=== PATIENT | male | born 1965 | race Caucasian/White ===

== ENCOUNTER 2019-10-22 14:50 | Inpatient (IN) | payer OTHER ==
[~2019-10-22] VITALS: Ht 175.3 cm; Wt 81.6 kg
[2019-10-22 15:32] LABS: BASOPHILS ABSOLUTE AUTO 0.01 K/mm3 (0.00-0.23); BASOPHILS PERCENT AUTO 0 % (0-2); EOSINOPHILS ABSOLUTE AUTO 0.02 K/mm3 (0.00-0.68); EOSINOPHILS PERCENT AUTO 0 % (0-6); Hematocrit 42.8 % (37.0-53.0); Hemoglobin 14.1 g/dL (13.5-17.5); IMMATURE GRAN ABSOLUTE AUTO 0.02 K/mm3 (0.00-0.10); IMMATURE GRAN PERCENT AUTO 0 % (0-1); LYMPHOCYTES ABSOLUTE AUTO 0.83 K/mm3 (0.84-5.20); LYMPHOCYTES PERCENT AUTO 9 % (21-46); MONOCYTES ABSOLUTE AUTO 0.69 K/mm3 (0.16-1.47); MONOCYTES PERCENT AUTO 7 % (4-13); Mean Corpuscular HGB 29.1 pg (26.0-34.0); Mean Corpuscular HGB Conc 32.9 g/dL (31.5-36.5); Mean Corpuscular Volume 88 fL (80-100); Mean Platelet Volume 10.2 fL (9.1-12.4); NEUTROPHILS ABSOLUTE AUTO 7.78 K/mm3 (1.96-9.15); NEUTROPHILS PERCENT AUTO 83 % (41-73); Platelet Count 241 K/mm3 (150-400); RDW Coefficient Variation 13.6 % (11.7-14.2); RDW Standard Deviation 44.1 fL (35.1-46.3); Red Blood Cell Count 4.84 M/mm3 (4.30-5.90); White Blood Cell Count 9.35 K/mm3 (4.00-11.30)
[2019-10-22 15:54] LABS: Acetaminophen, Random 4.2 ug/mL (10.0-30.0); Alanine Aminotransfer (ALT/SGP 303 U/L (12-78); Alk Phos 107 U/L (50-136); Anion Gap 6 mmol/L (6-16); Aspartate Aminotrans (AST/SGOT 179 U/L (12-37); Bilirubin, Total 0.8 mg/dL (0.1-1.0); Blood Urea Nitrogen 13 mg/dL (8-24); Bun/Creatinine Ratio 12.7 (12.0-20.0); CO2, Blood 28 mmol/L (21-32); Calcium, Blood 9.4 mg/dL (8.5-10.1); Chloride, Blood 105 mmol/L (98-108); Creatinine, Blood 1.02 mg/dL (0.60-1.20); Glomerular Filtration Rate >60 (60-); Glucose, Blood 109 mg/dL (70-99); Potassium, Blood 4.5 mmol/L (3.5-5.5); Sodium, Blood 139 mmol/L (136-145)
[2019-10-22 15:58] LABS: International Normalized Ratio 0.94; Prothrombin Time Results 10.1 Sec (9.7-11.5)
[2019-10-22] MEDS ORDERED: ACET500 PO (18:46)
[2019-10-23 02:18] LABS: U Amphetamine Screen DETECTED; U Barbituate Screen Not Detected; U Benzodiazapine Screen Not Detected; U Buprenorphine Screen Not Detected; U Cannabinoids Screen DETECTED; U Cocaine Screen Not Detected; U Methadone Screen Not Detected; U Methamphetamine Screen DETECTED; U Opiates Screen Not Detected; U Oxycodone Screen Not Detected; U Phencyclidine Screen Not Detected; U Propoxyphene Screen Not Detected
[2019-10-23 04:20] LABS: International Normalized Ratio 1.07; Prothrombin Time Results 11.4 Sec (9.7-11.5)
[2019-10-23 04:32] LABS: Acetaminophen, Random <2.0 ug/mL (10.0-30.0)
[2019-10-23 04:33] LABS: Alanine Aminotransfer (ALT/SGP 215 U/L (12-78); Albumin/Globulin Ratio 0.9 (0.8-1.8); Alk Phos 79 U/L (50-136); Anion Gap 7 mmol/L (6-16); Aspartate Aminotrans (AST/SGOT 80 U/L (12-37); Bilirubin, Total 0.5 mg/dL (0.1-1.0); Blood Urea Nitrogen 9 mg/dL (8-24); Bun/Creatinine Ratio 9.8 (12.0-20.0); CO2, Blood 27 mmol/L (21-32); Calcium, Blood 8.7 mg/dL (8.5-10.1); Chloride, Blood 107 mmol/L (98-108); Creatinine, Blood 0.92 mg/dL (0.60-1.20); Globulin, Blood 3.5 g/dL (2.2-4.0); Glomerular Filtration Rate >60 (60-); Glucose, Blood 106 mg/dL (70-99); Potassium, Blood 3.8 mmol/L (3.5-5.5); Sodium, Blood 141 mmol/L (136-145); Total Protein, Blood 6.5 g/dL (6.4-8.2)
--- NOTE | 2019-10-23 05:55 | NUR ---
UPDATE LAURE FROM POISON CONTROL CALLED FOR A SECOND TIME FOR AN UPDATE ON PATIENT AND PATIENT'S LABS. LAURE HAD CALLED AT THE BEGINNING OF THE SHIFT FOR UPDATES WELL. LAURE STATED THE NEXT THING NEEDED WAS FOR INR AND LFT LABS TO BE DRAWN TWO HOURS PRIOR TO COMPLETION OF THE 16 HOUR LONG ACETYLCYSTEINE IV GTT, APPROX 1400 TODAY.
--- NOTE | 2019-10-23 06:14 | NUR ---
SHIFT SUMMARY PATIENT IRRITABLE AT THE BEGINNING OF THE NIGHT. PATIENT CRYING AND SWEARING DUE TO FRUSTRATION OF BEING WOKEN UP WITH MEDICATION ADMINISTRATION, VITAL SIGNS, AND ASSESSMENT. HOWEVER, PATIENT HAS BEEN CHEERFUL AND COOPERATIVE [facility] CARE SINCE. PATIENT HAS APPEARED TO SLEEP WELL THROUGHOUT THE NIGHT BUT HAS BEEN EASILY AROUSIBLE. VITAL SIGNS CHARTED. IV FLUIDS AND ACETYLCYSTEINE GTT RUNNING PER ORDERS. PATIENT MEDICATED FOR NAUSEA PER EMAR BUT HAS HAD NO COMPLAINTS OF NAUSEA SINCE THE BEGINNING OF THE SHIFT. WILL CONTINUE TO MONITOR PATIENT AND REPORT TO ONCOMING RN.
--- NOTE | 2019-10-23 14:16 | NUR ---
Echocardiogram completed.
[2019-10-23 14:48] LABS: Albumin, Blood 2.9 g/dL (3.4-5.0); Albumin/Globulin Ratio 0.8 (0.8-1.8); Bilirubin, Direct 0.2 mg/dL (0.0-0.3); Bilirubin, Indirect 0.2 mg/dL (0.1-0.7); Bilirubin, Total 0.4 mg/dL (0.1-1.0); Globulin, Blood 3.7 g/dL (2.2-4.0); Total Protein, Blood 6.6 g/dL (6.4-8.2)
[2019-10-23 14:54] LABS: International Normalized Ratio 1.02; Prothrombin Time Results 10.9 Sec (9.7-11.5)
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
--- NOTE | 2019-10-23 20:48 | NUR ---
SPOKE WITH POISON CONTROL TECH LAURE; CALLED FOR UPDATE ON PATIENT; GTT CONTINUES; LABS SCHEDULED FOR AM; NO OTHER RECOMMENDATIONS AT THIS TIME.
[2019-10-24 04:00] LABS: International Normalized Ratio 1.02; Prothrombin Time Results 10.9 Sec (9.7-11.5)
[2019-10-24 04:05] LABS: Alanine Aminotransfer (ALT/SGP 269 U/L (12-78); Albumin, Blood 2.8 g/dL (3.4-5.0); Albumin/Globulin Ratio 0.8 (0.8-1.8); Alk Phos 82 U/L (50-136); Anion Gap 5 mmol/L (6-16); Aspartate Aminotrans (AST/SGOT 106 U/L (12-37); Bilirubin, Total 0.4 mg/dL (0.1-1.0); Blood Urea Nitrogen 9 mg/dL (8-24); Bun/Creatinine Ratio 9.9 (12.0-20.0); CO2, Blood 28 mmol/L (21-32); Calcium, Blood 8.6 mg/dL (8.5-10.1); Chloride, Blood 106 mmol/L (98-108); Creatinine, Blood 0.91 mg/dL (0.60-1.20); Globulin, Blood 3.6 g/dL (2.2-4.0); Glomerular Filtration Rate >60 (60-); Glucose, Blood 109 mg/dL (70-99); Potassium, Blood 3.7 mmol/L (3.5-5.5); Sodium, Blood 139 mmol/L (136-145); Total Protein, Blood 6.4 g/dL (6.4-8.2)
--- NOTE | 2019-10-24 05:53 | NUR ---
NO ACUTE CHANGES TO REPORT. PATIENT SLEPT ABOUT NINE HOURS LAST NIGHT. VSS. LIVER ENZYMES INCREASED. WILL CONTINUE TO MONITOR AND ASSESS UNTIL END OF SHIFT.
--- NOTE | 2019-10-24 05:56 | NUR ---
LAURE FROM POISON CONTROL CALLED AND BASED ON PATIENT'S AM LABS RECOMMENDS ANOTHER LITER OF ACETYLCYSTEINE. WILL CONTINUE TO MONITOR AND ASSESS UNTIL END OF SHIFT.
--- NOTE | 2019-10-24 11:05 | NUR ---
PT HAS BEEN VERY ANXIOUS ABOUT LEAVING TODAY. DISCUSSED W/ HIM AT BEGINNING OF SHIFT THAT HIS LIVER ENZYMES HAVE INCREASED FROM PRIOR, SO MD WOULD HAVE TO MAKE DECISION WHETHER OR NOT TO DISCHARGE HIM. DR. LUTZ CAME TO ROUND ON PT & DISCUSSED THAT LFTS CONTINUE TO INCREASE & THAT POSION CONTROL RECOMMENDS TO CONTINUE ACETYLCYSTEINE GTT. MD EXPLAINED THAT SHE CANNOT DISCHARGE HIM AT THIS POINT, HE WOULD HAVE TO SIGN OUT AMA. PT VERY ANGRY & YELLING, STATES HE WOULD LIKE SIGN OUT AMA. AFTER TALKING TO HIS FAMILY & BEING ADVISED BY STAFF ABOUT RISKS OF LEAVING AMA, PT CHANGED HIS MIND & DECIDED TO STAY. DR. LUTZ ORDERED LIVER PANEL TO BE DONE Q6H. POISON CONTROL MONITORING LABS & CHECKING IN. ACETYLCYSTEINE GTT CONTINUES TO INFUSE. PT NOW RESTING IN BED, CALM & COOPERATIVE W/ CARE.
[2019-10-24 12:07] LABS: Albumin/Globulin Ratio 0.8 (0.8-1.8); Bilirubin, Direct 0.1 mg/dL (0.0-0.3); Bilirubin, Indirect 0.3 mg/dL (0.1-0.7); Bilirubin, Total 0.4 mg/dL (0.1-1.0); Globulin, Blood 3.8 g/dL (2.2-4.0); Total Protein, Blood 6.8 g/dL (6.4-8.2)
--- NOTE | 2019-10-24 12:10 | NUR ---
RECEIVED CALL FROM ULISES IN POISON CONTROL. DISCUSSED THAT ACETYLCYSTEINE GTT IS STILL INFUSING & DR. LUTZ ORDERED FOR REPEAT LIVER PANEL TO BE CHECKED Q6H. UPDATED ON MOST RECENT AST & ALT RESULTS; AST TRENDING DOWN, ALT CONTINUES TO TREND UP. ULISES STATES TO CONTINUE GTT & THEY WILL FOLLOW UP TONIGHT TO TREND LABS.
[2019-10-24 17:25] LABS: International Normalized Ratio 1.03
[2019-10-24 17:36] LABS: Albumin/Globulin Ratio 0.8 (0.8-1.8); Bilirubin, Direct 0.1 mg/dL (0.0-0.3); Bilirubin, Indirect 0.3 mg/dL (0.1-0.7); Bilirubin, Total 0.4 mg/dL (0.1-1.0)
--- NOTE | 2019-10-24 17:40 | NUR ---
SHIFT SUMMARY NO ACUTE CHANGES THROUGHOUT SHIFT FROM PRIOR NOTES. VSS. PT AMBULATED AROUND UNIT A FEW TIMES TODAY. PT STATES HE IS BORED & HAS A LOT OF THINGS TO TAKE CARE OF AT HOME SO IS REALLY LOOKING TO BE DISCHARGED TOMORROW. PT HAS REMAINED CALM & COOPERATIVE W/ STAFF SINCE THIS AFTERNOON, NO OTHER OUTBURSTS. AGAIN REINFORCED THAT DISCHARGE WILL BE DEPENDENT UPON HIS LIVER ENZYMES IMPROVING. MOST RECENT LFTS HAVE TRENDED DOWN SINCE PRIOR LAB DRAW. LIVER ENZYMES BEING DRAWN Q6H, POISION CONTROL MONITORING CLOSELY, ACETYLCYSTEINE GTT CONTINUES TO INFUSE. PT CURRENTLY RESTING IN BED IN NO DISTRESS. WILL CONTINUE TO MONITOR UNTIL END OF SHIFT.
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
--- NOTE | 2019-10-24 21:49 | NUR ---
CRISTOPHER FROM POISON CONTROL WHO STATED THEY HAD PATIENT'S LABS FAXED OVER AND FROM HER STANDPOINT THE BAG HANGING OF ACETYLCYSTEINE CAN FINISH AND HE WILL NOT NEED ANYMORE BAGS BASED IN LABS AND PATIENT BEING STABLE. AST/ALT IMPROVING. CALL POISON CONTROL BACK IF ANY CHANGES OCCUR. WILL CONTINUE TO MONITOR AND ASSESS UNTIL END OF SHIFT.
[2019-10-24 23:08] LABS: Albumin, Blood 2.8 g/dL (3.4-5.0); Albumin/Globulin Ratio 0.7 (0.8-1.8); Bilirubin, Direct 0.1 mg/dL (0.0-0.3); Bilirubin, Indirect 0.1 mg/dL (0.1-0.7); Bilirubin, Total 0.2 mg/dL (0.1-1.0); Total Protein, Blood 6.8 g/dL (6.4-8.2)
[2019-10-25 05:44] LABS: Albumin/Globulin Ratio 0.8 (0.8-1.8); Bilirubin, Direct 0.1 mg/dL (0.0-0.3); Bilirubin, Indirect 0.3 mg/dL (0.1-0.7); Bilirubin, Total 0.4 mg/dL (0.1-1.0)
--- NOTE | 2019-10-25 05:59 | NUR ---
NO ACUTE CHANGES TO REPORT. PATIENT SLEPT ABOUT NINE HOURS LAST NIGHT. LABS CONTINUE TO IMPROVE. UPDATED SEISMIC PLOTTER ROLANDO ON POSION CONTROL RECOMMENDATIONS AND LAST BAG OF GTT FINISHED THEN S/L. VSS. WILL CONTINUE TO MONITOR AND ASSESS UNTIL END OF SHIFT.
--- NOTE | 2019-10-25 08:50 | NUR ---
AMA SIGN OUT PT VERY ANXIOUS ABOUT LEAVING & DID NOT WANT TO WAIT TO BE DISCHARGED SO DECIDED TO SIGN OUT AMA. EXPLAINED THAT POISON CONTROL SIGNED OFF & THAT PLAN IS FOR PT TO BE DISCHARGED ONCE HOSPITALIST MAKES ROUNDS & COMPLETES DISCHARGE ORDER. OFFERED TO CALL DOCTOR TO EXPEDITE DISCHARGE PROCESS IF POSSIBLE, BUT PT REFUSED & STATES, "I CAN'T WAIT ANY LONGER. I NEED TO LEAVE NOW. I HAVE THINGS TO DO." AMA PAPERWORK COMPLETED, DICUSSED THE RISKS & BENEFITS OF LEAVING; PT VERBALIZED UNDERSTANDING & SIGNED AMA FORM; WITNESSED BY THIS RN. IV & TELE REMOVED. PT AMBULATED OFF UNIT W/ ALL BELONGINGS.
== END 2019-10-25 08:45 | disposition left against medical advice (07) | DRG 918 ==
LOC: ER 14:50 → PCU 14:51 → ER 14:51 → PCU 18:27
PROVIDERS: Emergency Medicine; Internal Medicine; ADMIT Internal Medicine
DX: T39.1X1A Poisoning by 4-Aminophenol derivatives, accidental (unintentional), initial encounter (principal); R74.0 Nonspecific elevation of levels of transaminase and lactic acid dehydrogenase [LDH]; F15.10 Other stimulant abuse, uncomplicated; K08.89 Other specified disorders of teeth and supporting structures; F17.200 Nicotine dependence, unspecified, uncomplicated; Z53.29 Procedure and treatment not carried out because of patient's decision for other reasons
CPT/HCPCS: 36415; 80053; 80076; 82947; 85025; 85610; 93306; 96361; 96365; 96366; 96375; 96376; 99284-25; G0378; G0480; J0132; J2765; J7060; J7070; J7120

== ENCOUNTER 2020-04-04 12:37 | Emergency (ER) | payer OTHER ==
[~2020-04-04] VITALS: Ht 175.3 cm; Wt 88.5 kg
[~2020-04-04 12:37] MED LIST: ACET500 PO
[2020-04-04] MEDS ORDERED: AMOCLA875 PO (14:51)
[2020-04-04] MEDS ORDERED: IBUP800 PO (14:51)
== END 2020-04-04 15:05 | disposition home or self-care (01) ==
LOC: ER 12:37
DX: K02.9 Dental caries, unspecified (principal); F17.200 Nicotine dependence, unspecified, uncomplicated
CPT/HCPCS: 99282

== ENCOUNTER 2020-09-17 18:33 | Emergency (ER) | payer OTHER ==
[~2020-09-17] VITALS: Ht 175.3 cm; Wt 88.5 kg
[~2020-09-17 18:33] MED LIST changes: +AMOCLA875 PO; +IBUP800 PO
[2020-09-17] MEDS ORDERED: AMOCLA875 PO (19:30)
== END 2020-09-17 19:45 | disposition home or self-care (01) ==
LOC: ER 18:33
DX: K04.7 Periapical abscess without sinus (principal); F17.200 Nicotine dependence, unspecified, uncomplicated; Z79.4 Long term (current) use of insulin; Z79.899 Other long term (current) drug therapy
CPT/HCPCS: 96372; 99282-25; A9270; J1885